=== PATIENT | female | born 1945 ===

== ENCOUNTER 2017-10-25 09:35 | Emergency (ER) | payer MEDICARE ==
[2017-10-25 11:05] VITALS: BP 155/76
--- NOTE | 2017-10-29 23:34 | UC ---
Dental HPI - HPI Summary HPI Summary: 72 y/o female presents to the urgent care c/ sores in the corner of her mouth and upper lips that are swollen and painful. Pt couldn't put her teeth this morning due to pain. Pt reports she has has ried to take Vitamin B2 which usually helps her w/ the mouth sore, but this time is not working. Pt has Hx of DM type II. Pain is 8/10 associated w/ some white spot in her mouth. She aslos has mild nasal congestion w/ green discharge. Pt denies PENALOZA, cough , SOB, chest pain, abdominal pain, N/V/D - History of Current Complaint Chief Complaint: UCDentalProblem Stated Complaint: NAUSEA/SORES IN MOUTH Time Seen by Provider: 10/25/17 11:29 Hx Obtained From: Patient ?: No Onset/Duration: Gradual Onset, Lasting Weeks - 1.5 weeks, Still Present, Worse Since - yesterday Severity: Moderate Pain Intensity: 8 Pain Scale Used: 0-10 Numeric Aggravating Factor(s): Chewing, Other - eating Alleviating Factor(s): Nothing - Allergies/Home Medications Allergies/Adverse Reactions: Allergies Allergy/AdvReac Type Severity Reaction Status Date / Time Unable to Assess Allergy Verified 10/25/17 11:07 PMH/Surg Hx/FS Hx/Imm Hx Previously Healthy: Yes Endocrine History: Diabetes Other Endocrine History: Folic acid defeciency, RA Cardiovascular History: Hypertension Respiratory History: Asthma GI/ History: Gastroesophageal Reflux - Surgical History Surgical History: Yes - Family History Known Family History: Positive: Cardiac Disease, Hypertension, Diabetes - Social History Occupation: Retired Lives: With Family Alcohol Use: None Substance Use Type: None Smoking Status (MU): Never Smoked Tobacco Review of Systems Constitutional: Negative Skin: Negative Eyes: Negative ENT: Nasal Discharge - green, Other - mouth sore and white tongue Respiratory: Negative Cardiovascular: Negative Gastrointestinal: Nausea Genitourinary: Negative Motor: Negative Neurovascular: Negative Musculoskeletal: Negative Neurological: Negative Psychological: Negative Is Patient Immunocompromised?: No All Other Systems Reviewed And Are Negative: Yes Physical Exam - Summary Physical Exam Summary: VITAL SIGNS: Reviewed. GENERAL: Patient is a well developed and nourished female who is sitting comfortable in the examining table. Patient is not in any acute respiratory distress. HEAD AND FACE: No signs of trauma. No ecchymosis, hematomas or skull depressions. No sinus tenderness. EYES: PERRLA, EOMI x 2, No injected conjunctiva, no nystagmus. No photophobia. EARS: Hearing grossly intact. Ear canals and tympanic membranes are within normal limits. MOUTH: Positive pharynx with erythema, creamy white plaques adherent to the oral mucosa. also cracks, and ulcers radiating from angles of mouth and buccal mucosa and upper lip yellowish in color and tenure to palaption, No B/L tonsillar enlargement with exudate. Uvula in midline. NECK: Supple, trachea is midline, Positive anterior cervical lymphadenopathy, no JVD, no carotid bruit, no c-spine tenderness, neck with full ROM. No meningeal signs, no Kernig's or brudzinskis signs. CHEST: Symmetric, no tenderness at palpation LUNGS: Clear to auscultation bilaterally. No wheezing or crackles. CVS: Regular rate and rhythm, S1 and S2 present, no murmurs or gallops appreciated. ABDOMEN: Soft, non-tender. No signs of distention. No rebound no guarding, and no masses palpated. Bowel sounds are normal. EXTREMITIES: FROM in all major joints, no edema, no cyanosis or clubbing. NEURO: Alert and oriented x 3. No acute neurological deficits. Speech is normal and follows commands. SKIN: Dry and warm Triage Information Reviewed: Yes Vital Signs: Initial Vital Signs Temp 98.7 F 10/25/17 11:00 Pulse 108 10/25/17 11:00 Resp 16 10/25/17 11:00 BP 155/76 10/25/17 11:00 Pulse Ox 99 10/25/17 11:00 Dental Complaint Course/Dx - Course Course Of Treatment: 72 y/o female presents to the urgent care c/ sores in the corner of her mouth and upper lips that are swollen and painful. Pt couldn't put her teeth this morning due to pain. Pt reports she has has ried to take Vitamin B2 which usually helps her w/ the mouth sore, but this time is not working. Pt has Hx of DM type II. Pain is 8/10 associated w/ some white spot in her mouth. She aslos has mild nasal congestion w/ green discharge. Pt denies PENALOZA, cough , SOB, chest pain, abdominal pain, N/V/D. Hx obtained. Pt w/ probably Oral Candidiasis which may be co-infected on examination. Pt' symptoms discussed w/ Dr Espitia. She evaluated Pt and she thinks is only Oral candidiasis. She recommended Fluconazol PO x 5 days and Magic Mouth wash. Same medications sent to pharmacy and also Mycolog cream to alleviate symptoms. Pt advised to f/u w/ her PCP for further management on her DM type II. Pt's BP is elevated today advised to decrease salt in diet, monitor BP and f/u with PCP for further management.Pt understood and agreed w/ plan of care and left the clinic ambulating. - Differential Dx/Diagnosis Differential Diagnosis/Dx: Gingivitis, Peridontic Disease, Other - apthous ulcers, oral candidiasis Provider Diagnoses: 1- Oral candidiasis. 2- Uncontrolled HTN Discharge - Sign-Out/Discharge Documenting (check all that apply): Discharge/Admit/Transfer - D/C home - Discharge Plan Condition: Stable Disposition: HOME Prescriptions: Fluconazole 100 MG TAB* [Diflucan 100 MG TAB*] 100 mg PO DAILY #6 tab Magic Mouth Was-MATIAS/MAAL/LIDO* 5 ml SWISH SPIT QID #100 ml Nystatin/Triamcinolone CR(NF) [Mycolog CREAM*] 1 applic TOPICAL BID #1 tube Patient Education Materials: Oral Candidiasis (ED), Low-Sodium Diet (ED) Referrals: Rosa Yusuf MD [Primary Care Provider] - 3 Days Additional Instructions: 1- Please take Fluconazole PO as directed. Apply Topical cream in the affected area in the mouth as directed 2-Please take Magic mouth rinse as directed pain and swelling. Increase fluid intake, eat well, rest and avoid strenuous exercise 3-If symptoms do not improve or worsen please f/u with your PCP 3 days for further evaluation and treatment and to check your DM type II 4-Your BP is elevated today. please decrease salt in your diet, monitor BP and if it continues to be elevated please f/u with your PCP for further management - Billing Disposition and Condition Condition: STABLE Disposition: Home
== END 2017-10-25 12:21 | disposition home or self-care (01) ==
LOC: UCCORT 09:35
DX: B37.0 Candidal stomatitis (principal); R09.81 Nasal congestion; R11.0 Nausea; I10 Essential (primary) hypertension; E11.9 Type 2 diabetes mellitus without complications; E53.8 Deficiency of other specified B group vitamins; M06.9 Rheumatoid arthritis, unspecified; J45.909 Unspecified asthma, uncomplicated; K21.9 Gastro-esophageal reflux disease without esophagitis; Z82.49 Family history of ischemic heart disease and other diseases of the circulatory system; Z83.3 Family history of diabetes mellitus
CPT/HCPCS: 99212; G0463